=== PATIENT | male | born 1950 | race Caucasian/White ===

== ENCOUNTER → 2019-09-15 21:25 | Outpatient (CLI) | payer MEDICARE, OTHER, SELFPAY ==
[2019-08-30 10:44] VITALS: BMI 36.2
== END ==
PROVIDERS: PCP Family Medicine; Referring Provider Internal Medicine Critical Care Medicine; Visit Provider Internal Medicine Critical Care Medicine
DX: G47.33 Obstructive sleep apnea (adult) (pediatric) (principal)
CPT/HCPCS: 95811

== ENCOUNTER → 2019-09-22 10:05 | Outpatient (CLI) | payer MEDICARE, OTHER, SELFPAY ==
[2019-08-30 10:44] VITALS: BMI 36.2
--- NOTE | 2019-09-23 09:45 | PFT ---
INTRODUCTION: The patient is a 69-year-old male that presents for pulmonary function studies secondary to a diagnosis of dyspnea on exertion. Respiratory therapy reports good patient effort. Bronchodilators were used during testing. INTERPRETATION: Forced expiration spirometry demonstrates no evidence of a large airways obstructive ventilatory defect. There was no significant response to aerosolized bronchodilators. Spirograms are of good quality and plateau normally. Body plethysmography was performed and reveals a decreased TLC to 5.69 L, indicative of a mild restrictive ventilatory impairment. The remainder of the lung volumes are symmetrically reduced. Diffusing capacity by single breath CO is reduced at 63% of predicted. IMPRESSION: Mild restrictive ventilatory impairment with symmetric reduction in diffusing capacity.
== END ==
PROVIDERS: PCP Family Medicine; Referring Provider Internal Medicine Critical Care Medicine; Visit Provider Internal Medicine Critical Care Medicine
DX: R06.09 Other forms of dyspnea (principal)
CPT/HCPCS: 94060; 94726; 94729

== ENCOUNTER → 2020-02-28 13:00 | Outpatient (CLI) | payer OTHER, MEDICARE, SELFPAY ==
[2020-02-23 05:41] VITALS: BMI 37.0
== END ==
PROVIDERS: PCP Family Medicine; Referring Provider Internal Medicine Critical Care Medicine; Visit Provider Internal Medicine Critical Care Medicine
DX: Z46.89 Encounter for fitting and adjustment of other specified devices (principal)
CPT/HCPCS: 98960; G0463

== ENCOUNTER 2020-10-03 11:34 | Outpatient (RCR) | payer MEDICARE, OTHER, SELFPAY ==
[2020-08-28 08:25] VITALS: BMI 38.2
== END 2020-10-03 23:59 ==
LOC: IMMUN 11:34
PROVIDERS: PCP Family Medicine; Referring Provider Family Medicine; Visit Provider Family Medicine
DX: Z23 Encounter for immunization (principal)
CPT/HCPCS: 0011A; 0012A; 91301

== ENCOUNTER 2021-06-27 19:20 | Inpatient (IN) | payer MEDICARE, OTHER, SELFPAY ==
[2021-06-27 19:50] VITALS: BP 165/73; PULSE 89; RESP 17; TEMP 36.7; O2SAT 90
[2021-06-27 20:01] VITALS: BMI 36.1
[2021-06-27 21:09] VITALS: BP 145/63; PULSE 80; RESP 18; TEMP 36.8; O2SAT 93
[2021-06-27 21:11] VITALS: PULSE 65; O2SAT 93
--- NOTE | 2021-06-27 21:40 | NURSING ---
accucheck 49. orange juice and snack given. Stat back up sugar ordered
[2021-06-27 21:50] LABS: Bedside Glucose 49 mg/dL (70-110)
[2021-06-27] MEDS: Aspirin E.C. 81 MG Tablet PO (21:50)
[2021-06-27 22:44] LABS: Glucose 78 mg/dL (74-106)
[2021-06-28 00:46] LABS: Bedside Glucose 82 mg/dL (70-110)
[2021-06-28] MEDS: Acetaminophen 500 MG Tablet 1000 MG PO ×2 (04:24→13:54)
[2021-06-28] MEDS: oxyCODONE 5 MG Tablet PO ×3 (04:24→18:55)
[2021-06-28 05:49] LABS: Absolute Lymphocyte Count 2.18 X10^3/uL (0.83-4.51); Absolute Neutrophil Count 7.8 X10^3/uL (2.0-7.7); Basophil# 0.03 X10^3/uL; Basophil% 0.3 % (0-1); Eosinophils% 0.9 % (0-5); Hematocrit 31.4 % (40-54); Hemoglobin 10.4 g/dL (13.0-16.5); Lymphocyte # 2.18 X10^3/ul (0.83-4.51); Lymphocyte % 18.8 % (19-41); Mean Corp Hgb Conc 33.1 g/dL (32-36); Mean Corpuscular Hgb 30.4 pg (27.0-32.0); Mean Corpuscular Volume 91.8 fL (80-94); Mean Platelet Vol. 10.1 fl (6.2-12.0); Monocyte# 1.46 X10^3/uL; Monocyte% 12.6 % (0-10); NRBC Flagged by Analyzer 0 % (0-5); Neutrophil # 7.78 X10^3/uL (2.7-7.7); Neutrophil % 67.1 % (47-70); Platelet Count 267 K/mm3 (150-450); RBC Distribution Width CV 14.4 % (11.6-14.6); RBC Distribution Width SD 48.1 fl (35.1-43.9); Red Blood Count 3.42 M/mm3 (4.6-6.2); White Blood Count 11.6 K/mm3 (4.4-11.0)
[2021-06-28 06:19] LABS: ALB/GLOB Ratio 0.8 RATIO (0.9-2.4); AST(SGOT) 44 U/L (15-37); Alanine Aminotransfer ALT/SGPT 35 U/L (16-61); Albumin, Serum 2.9 g/dL (3.2-5.0); Alkaline Phosphatase 103 U/L (45-117); Anion Gap 8 (5-15); BUN 20 mg/dL (7-18); BUN/Creat Ratio 23.4 RATIO (10-20); Calcium,Total 8.7 mg/dL (8.5-10.1); Chloride 105 mmol/L (98-107); Creatinine, Serum 0.86 mg/dL (0.70-1.30); EST Glomerular Filtration Rate 93 mL/min (>60); Est Glom Filt Rate - Afr Amer 113 mL/min (>60); Estimated Creatinine Clearance 86.47 ml/min; Globulin 3.8 g/dL (2.2-4.2); Glucose 83 mg/dL (74-106); Phosphorus 3.4 mg/dL (2.5-4.9); Potassium 3.7 mmol/L (3.5-5.1); Protein, Total 6.7 g/dL (6.4-8.2); Sodium Level 138 mmol/L (136-145)
[2021-06-28 06:45] LABS: Bedside Glucose 91 mg/dL (70-110)
[2021-06-28] MEDS: metFORMIN HCl 1,000 MG Tablet 1000 MG PO (08:00)
[2021-06-28] MEDS: Lisinopril 10 MG Tablet PO (08:00)
[2021-06-28] MEDS: Pantoprazole Sodium 20 MG Tablet PO (08:00)
[2021-06-28] MEDS: CANAGLIFLOZIN 300 MG TABLET PO (08:00)
[2021-06-28] MEDS: Timolol 0.5% 5ML OPTH.BTL 1 DRP EACH EYE ×2 (08:00→21:32)
[2021-06-28] MEDS: Aspirin E.C. 81 MG Tablet PO ×2 (08:00→21:31)
[2021-06-28 10:00] VITALS: BP 162/68; PULSE 78; RESP 16; TEMP 37.1; O2SAT 95
--- NOTE | 2021-06-28 11:06 | PCM.HP.STD ---
[facility] - General General Date of Admission: 06/27/21 Date of Service: 06/28/21 Chief Complaint: debility due to recent R ankle surgery. He is NWB on the RLE. HPI Narrative CORINA ELLIS, is a 70 YO M with a PMH of DM II (poorly controlled for many years), diabetic neuropathy in both feet and neuropathy in the fingertips of both hands, Obesity, GERD, NIKI on BIPAP at with 100% compliance at his last visit with Dr. Celis, HTN, presbycusis, HLD, tobacco dependence in remission, Psoriasis, OA and glaucoma who had an open anterior ankle fusion on the R ankle by Dr. Wilks approximately in June of 2020. In January of 2021 he noticed his ankle was rolling over on the lateral side. When he saw Dr. 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 This became infected and he was treated with antibiotics with resolution of infection prior to the recent revision of the R ankle fusion and placement of a hindfoot fusion nail on 06/25/21. He was told by Dr. Wilks prior to the recent surgery that if this fails he is likely looking at amputation. Post-operatively he was seen by PT/OT and acute rehab was recommended. He was transferred to the acute inpt rehab unit at [facility] on 06/27/21 for 3 hours of therapy daily to train him to maneuver a knee walker safely. He will be NWB on the RLE for at least 6 weeks. He walks without an AD. Had a abnormal stress about 10 years ago but, the cardiac cath at [place] reportedly had no CAD. Does not often check his BS at home unless he has hypoglycemic episode. This is usually at night. Does not follow a diet. Not really open to following a diet. He likes to eat. Got diabetic shoes fitted in April prior to the recent surgery on the R ankle Has never seen a manager environmental affairs. Cuts his own toenails. Does not often follow up with his PCP. Sees an it help desk technician, Dr. Barlow, for management of the diabetes. Is due for an appt......it has been delayed by the surgery. Does not know his cholesterol but, he tells me his last HGBA1C was 7.3. Frequently gets hypoglycemic in the hospital because of the change in diet. He has lost 16 lbs since August of 2020. Has never had vascular studies on his legs. He had a infected diabetic ulcer on the lateral side of the R foot that was treated prior to the recent surgery. He was smoking 2 1/2 to 3 PPD of cigarettes daily until 2004. He started at the age of 17 when he went into the . He had PFT's in September of 2019 and findings revealed mild restrictive ventilatory defect. DLCO was decreased at 63% of predicted. All lab from this morning was reviewed. The white blood cell count is elevated at 11.6 with an unremarkable differential. Hemoglobin is 10.4 with an MCV of 91.8. Platelets are within normal limits. BMP is remarkable for an elevated BUN at 20 with a creatinine of 0.86. Hemoglobin A1c is 6 and the fasting glucose this morning was 83. Magnesium and phosphorus are within normal limits. BS last night was low at 42. diagnosed with DM 1996. [facility] Medical History (Updated 06/28/21 @ 12:[address] Ana Bose, ) Acid reflux Cardiac arrhythmia Enlarged prostate History of diabetic ulcer of foot HTN (hypertension) Hyperlipidemia Nonunion after arthrodesis Psoriasis PVD (peripheral vascular disease) Right medial tibial plateau fracture Tobacco dependence in remission Type 2 diabetes mellitus Home Medications atorvastatin 40 mg tablet 40 mg PO DAILY 08/29/19 [History Last Taken 06/27/21] canagliflozin 300 mg tablet 300 mg PO DAILY 08/29/19 [History Last Taken 06/27/21] dulaglutide 1.5 mg/0.5 mL subcutaneous pen injector 1.5 mg SC QWEEK 08/29/19 [History Last Taken 06/23/21] insulin human U-100 NPH-regulr 70-30 mix 100 unit/mL subcutaneous susp 120 unit SC BID 08/29/19 [History Last Taken 06/27/21] lisinopril 10 mg tablet 10 mg PO DAILY 08/29/19 [History Last Taken 06/27/21] metformin 1,000 mg tablet 1,000 mg PO DAILY 08/29/19 [History Last Taken 06/27/21] omeprazole 20 mg capsule,delayed release 20 mg PO DAILY 08/29/19 [History Last Taken 06/27/21] Avano 6 ml Q1H 06/27/21 [History Last Taken 06/27/21] acetaminophen 500 mg PO Q6H PRN 06/27/21 [History Last Taken Unknown] aspirin [Aspir-Low] 81 mg PO DAILY MDD heart 06/27/21 [History Last Taken Unknown] latanoprost 1 drp EACH EYE QPM 06/27/21 [History Last Taken 06/26/21] timolol 1 drp EACH EYE DAILY 06/27/21 [History Last Taken 06/27/21] Allergy/AdvReac Type Severity Reaction Status Date / Time codeine Allergy Unknown Unknown Verified 06/27/21 20:04 Penicillins Allergy Unknown Unknown Verified 06/27/21 20:04 Family History Mother Heart disease Hypertension Father Hypertension Prostate cancer Surgical History (Updated 06/28/21 @ 12:[address] Ana Bose DO) H/O umbilical hernia repair History of hand surgery History of knee surgery History of repair of rotator cuff History of tonsillectomy and adenoidectomy Hx of appendectomy S/P tendon repair Status post left foot surgery Status post open reduction with internal fixation of fracture Vasectomy status Social History (Updated 06/28/21 @ 14:[address] Ana Bose DO) household members: spouse pets and animals: Yes current gender identity: male Smoking Status: Former smoker Tobacco: How many years used: 38 how long ago did patient quit smoking: He stopped smoking in 2004 and started at 17. Smoked up to 3 PPD. alcohol intake: never substance use type: does not use ROS Constitutional Constitutional: Reports change in weight, weight loss and other Details: Wears CPAP every night. He has lost 16 lbs since August of 2020. ; Denies anorexia or chills Eyes Eyes: Reports other Details: He has BL early cataracts. Has never had laser surgery on his eyes for diabetic retinopathy. He is on medication for glaucoma ENT HEENT: Reports disequillibrium and hearing loss; Denies sore throat or vertigo Cardiovascular Cardiovascular: Reports edema; Denies chest pain, dyspnea on exertion, lightheadedness, orthopnea, palpitations, paroxysmal nocturnal dyspnea or syncope Respiratory/Chest Respiratory/Chest: Denies cough, dyspnea, shortness of breath at rest, shortness of breath with exertion or wheezing Gastrointestinal Gastrointestinal: Denies abdominal pain, constipation, diarrhea, dyspepsia, hematemesis, hematochezia, nausea or vomiting Genitourinary Genitourinary: Denies dysuria, hematuria, nocturia, urinary frequency, urinary hesitancy, urinary incontinence or urinary urgency Musculoskeletal Musculoskeletal: Reports other Details: He complains of restless legs at night when he is trying to sleep. ; Denies back pain, joint pain, joint swelling, muscle cramps, neck pain or tremors Integumentary Integumentary: Reports nail changes and other Details: He has psoriasis and uses a shampoo to keep the rash under control. ; Denies jaundice Neurologic Neurologic: Reports paresthesias RUE, RLE, LUE and LLE; Denies confusion, disequilibrium, dizziness, focal weakness, headache(s), seizures or tremor(s) Psychiatric Psychiatric: Denies anxiety, cognitive impairment, depression, difficulty concentrating, homicidal ideation, mood swings, panic attacks or suicidal ideation Endocrine Endocrinology: Denies change in body appearance, polydipsia or polyuria Hematologic/Lymphatic Hematologic/Lymphatic: Denies easy bleeding, easy bruising or lymphadenopathy Allergic/Immunologic Allergic/Immunologic: Reports other Details: psoriasis ; Denies rhinitis, eczemia or asthma Vital Signs Vital Signs Vital Signs: 06/27/21 19:50 06/27/21 20:55 06/27/21 21:09 Temperature 98.1 F 98.3 F Temperature Source Temporal Temporal Pulse Rate 89 80 Pulse Strength Normal (2+) Respiratory Rate 17 18 Respiratory Effort Respiratory Depth Respiratory Pattern Blood Pressure 165/73 H 145/63 H Blood Pressure Mean 103 90 Blood Pressure Source Monitor Monitor Blood Pressure Position Semi-Fowlers Semi-Fowlers Blood Pressure Location Right Arm Right Arm Pulse Ox 90 93 Oxygen Delivery Method Room Air Room Air 06/27/21 21:11 06/28/21 10:00 Temperature 98.8 F Temperature Source Oral Pulse Rate 65 78 Pulse Strength Respiratory Rate 16 Respiratory Effort Normal Non-Labored Respiratory Depth Normal Respiratory Pattern Normal Blood Pressure 162/68 H Blood Pressure Mean 99 Blood Pressure Source Monitor Blood Pressure Position Semi-Fowlers Blood Pressure Location Left Arm Pulse Ox 93 95 Oxygen Delivery Method Room Air Room Air Weight Weight: 266 lb 1.567 oz Body Mass Index (BMI) 36.1 Physical Exam Const alert, oriented x3, no apparent distress and well nourished Constitutional Narrative: Sitting in the recliner at the bedside. Denies pain and appears comfortable. General Appearance: cooperative and well kempt HEENT normocephalic HEENT Narrative: MM are dry. No facial asymmetry. Head and Scalp: atraumatic; Negative for temporal artery tenderness Nose: external nose normal External Ear: other Throat: other Other Details: mild hearing loss. He is able to understand me if I remove my mask and only occasionally asks me to repeat something. He has hearing aids but, when he puts them in within 2 days his EAC's start to bleed....he has discussed this with his customer sales distributor and she did not offer any treatment. He associates the bleeding with psoriasis Eyes EOMs intact bilaterally, conjunctivae normal and no scleral icterus Neck no lymphadenopathy and supple Neck Narrative: Thick neck. No carotid bruits. Carotids have brisk upstroke and goo pulse volume. Chest Chest: symmetrical chest wall rise Resp normal respiratory effort and clear to auscultation bilaterally Resp Narrative: diminished BS's - suspect due to body habitus +/- restrictive ventilatory defect. Effort and Inspection: able to speak in complete sentences Cardio regular rate, regular rhythm, S1 normal heart sound, S2 normal heart sound, no murmurs, no rub and no gallops GI GI Narrative: Obese. NT, ND, no guarding with palpation. No masses appreciated and no abd bruits. external exam normal Narrative: He has been circumcised. Extremity Extremity Narrative: Trace pitting ankle edema on the left medially. Maldonado enlargement of the L ankle laterally. R ankle is dressed and has an LYSSA wrap around the ankle. DP and PT in the L ankle are 3/3. I could not palpate the DP and PT on the R due to the dressing but the R popliteal is 3/3. He has been told the pulses in the R foot are decreased. Tinea unguium of the nails of the feet. The feet are warm BL. Skin General Skin Exam: no breakdown Rashes: no rashes Wound Narrative: the incision is covered by the dressing and will examine at the next dressing change Neuro oriented x3, CN's II-XII intact bilaterally, moves all extremities and no focal motor deficits Neuro Narrative: severe neuropathy in both feet and also has neuropathy in the tips of the fingers BL......thumb is spared BL. Psych mental status grossly normal, thought process normal, cooperative, affect normal and speech normal Appearance: grossly normal and appropriate Activity / Motor Behavior: appropriate eye contact Mood & Affect: euthymic mood Results Lab / Micro Data Result Diagrams: 06/28/21 05:28 06/28/21 05:28 Labs: Laboratory Results - last 24 hr 06/27/21 21:40: POC Glucose 49 L 06/27/21 22:14: Glucose 78 06/28/21 00:40: POC Glucose 82 06/28/21 05:28: WBC 11.6 H, RBC 3.42 L, Hgb 10.4 L, Hct 31.4 L, MCV 91.8, MCH 30.4, MCHC 33.1, RDW Std Deviation 48.1 H, RDW Coeff of Luis Alberto 14.4, Plt Count 267, MPV 10.1, Immature Gran % (Auto) 0.300, Neut % (Auto) 67.1, Lymph % (Auto) 18.8 L, [place] % (Auto) 12.6 H, Eos % (Auto) 0.9, Baso % (Auto) 0.3, Absolute Neuts (auto) 7.8 H, Absolute Lymphs (auto) 2.18, Nucleated RBC % 0 06/28/21 05:28: Sodium 138, Potassium 3.7, Chloride 105, Carbon Dioxide 25.0, Anion Gap 8, BUN 20 H, Creatinine 0.86, Estim Creat Clear Calc 86.47, Est GFR (MDRD) Af Amer 113, Est GFR (MDRD) Non-Af 93, BUN/Creatinine Ratio 23.4 H, Glucose 83, Calcium 8.7, Phosphorus 3.4, Magnesium 2.0, Total Bilirubin 0.40, AST 44 H, ALT 35, Alkaline Phosphatase 103, Total Protein 6.7, Albumin 2.9 L, Globulin 3.8, Albumin/Globulin Ratio 0.8 L 06/28/21 05:28: Hemoglobin A1c 6.0 H 06/28/21 06:38: POC Glucose 91 Assessment & Plan Assessment/Plan (1) Chronic cough: (2) NIKI (obstructive sleep apnea): (3) Dyspnea on exertion: (4) Obesity due to excess calories with serious comorbidity: QUALIFIERS: Body mass index: BMI 36.0-36.9 Obesity classification: adult class 2 (BMI 35 - 39.9) Qualified Code(s): E66.01 - Morbid (severe) obesity due to excess calories; Z68.36 - Body mass index (BMI) 36.0-36.9, adult (5) Status post open reduction with internal fixation of fracture: (6) PVD (peripheral vascular disease): (7) Enlarged prostate: (8) Cardiac arrhythmia: (9) Acid reflux: (10) Hyperlipidemia: (11) HTN (hypertension): (12) Type 2 diabetes mellitus: (13) Normochromic normocytic anemia: (14) Physical debility: (15) Glaucoma: (16) Status post open reduction and internal fixation (ORIF) of fracture: PLAN: PLAN PT for gait stability OT for ADL's Analgesics as needed Bowel protocol Fall precautions Assess for Anxiety/Depression GI prophylaxis with Protonix 20 mg p.o. daily DVT prophylaxis with enoxaparin 30 mg subcu every 12 hours and TAMEKA kuhn Follow up with Dr. Lo, Dr. Barlow? and Dr. Wilks following DC from IP Rehab AM lab including CMP, CBC, Mag and Phos - reviewed I advised him to follow up with a manager environmental affairs to cut his toenails in the future. He is never to go barefoot or walk in his stocking feet. I think it would be gonzáles at some point to get vascular studies on this 70 YO man with DM II, HTN, HLD, extensive smoking hx, diabetic neuropathy in hands and feet and a + FH of heart disease to evaluate for ischemia as the etiology of the non-union. May want to also consider a bone stimulator. Will check a Vitamin D. He needs to have pharmacologic DVT prophylaxis and did not come to us with any orders. Will start Lovenox 30 mg SQ Q 12H and try to reach Dr. Wilks about his preferences for DVT prophylaxis. Strict NWB on the RLE. Education regarding a proper diet. International Marketing Manager consulted. Check a lipid panel, iron studies, protein/creat ratio in the urine. Charges/Coding Visit Charges Inpatient E&M: 89814 Init Hosp L3
[2021-06-28 11:17] VITALS: O2SAT 97
[2021-06-28 12:00] LABS: Bedside Glucose 156 mg/dL (70-110)
[2021-06-28 12:24] LABS: Cholesterol 122 mg/dL (200); Ferritin 77 ng/mL (26-388); High Density Lipoprotein 30 mg/dL; Iron 26 ug/dL (65-175); Iron Binding Capacity,Total 307 ug/dL (250-450); PERCENT IRON SATURATION 8.5 % (15.0-55.0); Triglycerides 143 mg/dL; Very Low Density Lipoprotein 29 mg/dL (5-40)
[2021-06-28 13:08] VITALS: O2SAT 97
[2021-06-28 14:16] LABS: Protein, Urine (Random) 15.4 mg/dL (<11.9); Protein:Creat Ratio 336 mg/g CRE (0-200)
--- NOTE | 2021-06-28 14:30 | PCM.RU.PYE ---
Admission Information Primary Diagnosis:: Debility due to recent R ankle fusion due to non-union of the previous anterior R ankle fusion. NWB on the RLE for at least 6 weeks and possibly longer. Status Changes from Prescreening?: No changes Identified Actual Problem List:: Skin Intergrity, Pain, ALteration in Cmfrt, Mobility Impaired, Self Care Deficit, Know.Dfct/Disease Process, Diabetes, Hypoglycemia, BP, Hypertension, Fluid Change-Dehydration and Alteration-Leisure Activ. Potential Problem List:: DVT, Bleeding, Infection, UTI, Aspiration, Falls, Skin Integrity and Depression Risk of Complications DVT: LMWH and TAMEKA Hose Bleeding: Monitor Lab Values, Nursing to Teach Precautions for anti-coagulation therapy., Wound, if applicable, to be assessed every shift. and Stroke patients assessed for lethargy or change in status. Infection: Clinical Staff to Monitor for S/S of infection: and S/S of infection include fever, redness, warmth, etc. Urinary Tract Infection: Monitor for frequency, burning, discomfort, or incontinence. and Nursing will obtain urine sample for urinalysis and C&S when ordered. Aspiration: Clinical staff will monitor for coughing, drooling, congestion., Speech will evaluate swallowing and dsyphasia. and Nursing will monitor patient swallowing during meals. Falls: Patient will be evaluated for Fall Precautions and Patient will be placed on Fall Precautions as indicated per protocol. Skin Breakdown: Nursing will assess skin daily using assessment tool. and Nursing will place on Skin Breakdown Precautions as indicated. Pain: Clinical staff will assess patient's pain level per protocol., Medications will be given, if needed, and the pain level reassessed. and Other methods: Massage, distraction, decrease stimulus, etc. used PRN. Plan of Care Patient requires physician specializing in physical medicine and rehab oversight to provide close medical supervision of rehab issues including: Pain Management, Sleep Problems, Bowel and Bladder, Medical and co-morbidity Management, DVT prophylaxis, Rehabilitation Leadership and Coordination of treatment team Patient needs Physical Therapy: For a minimum of 1 hour and At least 5 out of 7 days Patient needs Physical Therapy to improve:: Mobility, Strengthening, Transfers, Stretching, ROM, Endurance, Stairs, Gait and Balance Patient needs Occupational Therapy: For a minimum of 1 hour and At least 5 out of 7 days Patient needs Occupational Therapy to improve ADL's incl.: Eating, Grooming, Bathing, Dressing, Toileting, Toilet transfers, Community Reintegration, Higher functioning activities, Household tasks, Adaptive Equipment, Splinting and Other activities as determined Patient requires 24/7 Rehabilitation Nursing for: Pain Issues, Identifying and preventing risk factors, Monitoring and reporting current medical conditions, Assisting with ambulation, transfer, and all ADL's, Teaching patients about disease process and medications, Family teaching, Providing safe environment, Bowel and Bladder Issues, Skin integrity and Medication Management Patient needs Semiconductor Equipment Technician/ Case Management for: Discharge Planning, Arranging Home Equipment or Services and Family Interventions Patient needs Dietary and Nutrition Services for: Adequate Nutrition, Nutritional Supplements and Nutritional Education Goals Patient will remain: free from falls and or injury at time of discharge. Patient will perform bed mobility at: MOD I level of assist. Patient will complete transfers from bed to chair at: MOD I level of assist. Patient will ambulate: with LRD and - (Step/hop on the Left leg with WW for 10 ft) Patient will propel wheelchair: - (165 feet at mod I) Patient will complete upper body dressing at: MOD I level of assist. Patient will complete lower body dressing at: MOD I level of assist. Patient will complete toileting at: - (He will demonstrate stand and pivot on and off an elevated commode and toileting tasks at mod I) Patient will perform bathing at: - (He will demonstrate transfer on and off tub/shower bench services with the use of mounted grab bars at a standby assist level) Patient will complete grooming at: MOD I level of assist. Patient will complete home management skills at: MOD I level of assist. Patient will achieve: - (No stairs until he is allowed to bear weight on the right lower extremity) Patient will have pain level of: of 3 or less Patient's skin will: remain intact Patient will receive: adequate nutrition. Discharge Planning Pt Prognosis for Sig. Practical Improv. w/in Reasonable Time: Good Estimated Length of stay (days): 21 Anticipated D/C Destination: Home w/ family or friends Was Preadmission Assessment Accurate?: Yes
[2021-06-28] MEDS: 0.9% Saline Lock 10 ML Syringe IV (16:12)
[2021-06-28] MEDS: Sodium Ferric Gluconat 125 MG in 0.9% Normal Saline 100 ML 110 MG IV (16:18)
[2021-06-28] MEDS: Insulin Human 75/25 Kwickpen 70 UNIT SC (16:47)
[2021-06-28 16:56] LABS: Bedside Glucose 175 mg/dL (70-110)
[2021-06-28] MEDS: Insulin Lispro 100 UNIT/ML INSULN.PEN SC (17:27)
[2021-06-28 19:30] VITALS: PULSE 87; RESP 18
[2021-06-28] MEDS: Enoxaparin 30 MG/0.3 ML Syringe SC (21:31)
[2021-06-28] MEDS: Atorvastatin Calcium 40 MG Tablet PO (21:31)
[2021-06-28 21:45] LABS: Bedside Glucose 207 mg/dL (70-110)
[2021-06-28 22:00] VITALS: BP 129/62; PULSE 87; RESP 18; TEMP 37; O2SAT 97
[2021-06-28] MEDS: Senna/Docusate Sodium 1 Tablet 2 TABLET PO (22:42)
[2021-06-29] MEDS: oxyCODONE 5 MG Tablet PO ×3 (05:36→21:42)
[2021-06-29 07:11] LABS: Bedside Glucose 150 mg/dL (70-110)
[2021-06-29 08:15] VITALS: O2SAT 95
[2021-06-29 08:32] VITALS: BP 149/71; PULSE 80; RESP 16; TEMP 36.9; O2SAT 95
[2021-06-29] MEDS: metFORMIN HCl 1,000 MG Tablet 1000 MG PO (08:41)
[2021-06-29] MEDS: CANAGLIFLOZIN 300 MG TABLET PO (08:41)
[2021-06-29] MEDS: Aspirin E.C. 81 MG Tablet PO ×2 (08:41→21:33)
[2021-06-29] MEDS: Senna/Docusate Sodium 1 Tablet 2 TABLET PO ×2 (08:41→21:40)
[2021-06-29] MEDS: Pantoprazole Sodium 20 MG Tablet PO (08:41)
[2021-06-29] MEDS: Lisinopril 10 MG Tablet PO (08:41)
[2021-06-29] MEDS: Latanoprost 0.005% 1 Bottle 1 DRP EACH EYE (08:42)
[2021-06-29] MEDS: Enoxaparin 30 MG/0.3 ML Syringe SC ×2 (08:42→21:33)
[2021-06-29] MEDS: Insulin Lispro 100 UNIT/ML INSULN.PEN SC ×3 (08:42→16:46)
[2021-06-29] MEDS: Timolol 0.5% 5ML OPTH.BTL 1 DRP EACH EYE ×2 (08:42→21:33)
[2021-06-29] MEDS: Insulin Human 75/25 Kwickpen 90 UNIT SC (08:43)
[2021-06-29 11:15] LABS: Bedside Glucose 182 mg/dL (70-110)
[2021-06-29] MEDS: Insulin Human 75/25 Kwickpen 70 UNIT SC (16:45)
[2021-06-29 17:06] LABS: Bedside Glucose 166 mg/dL (70-110)
[2021-06-29 19:23] VITALS: BP 136/59; PULSE 76; RESP 18; TEMP 36.7; O2SAT 95
[2021-06-29 21:31] LABS: Bedside Glucose 126 mg/dL (70-110)
[2021-06-29] MEDS: Atorvastatin Calcium 40 MG Tablet PO (21:33)
[2021-06-29 21:46] VITALS: RESP 16
[2021-06-30 06:36] LABS: Bedside Glucose 140 mg/dL (70-110)
[2021-06-30 07:30] VITALS: O2SAT 95
[2021-06-30 08:08] VITALS: BP 151/67; PULSE 84; RESP 16; TEMP 36.6; O2SAT 92
[2021-06-30] MEDS: Aspirin E.C. 81 MG Tablet PO ×2 (08:26→20:58)
[2021-06-30] MEDS: metFORMIN HCl 1,000 MG Tablet 1000 MG PO (08:28)
[2021-06-30] MEDS: Enoxaparin 30 MG/0.3 ML Syringe SC ×2 (08:29→20:58)
[2021-06-30] MEDS: Pantoprazole Sodium 20 MG Tablet PO (08:29)
[2021-06-30] MEDS: CANAGLIFLOZIN 300 MG TABLET PO (08:29)
[2021-06-30] MEDS: Latanoprost 0.005% 1 Bottle 1 DRP EACH EYE (08:29)
[2021-06-30] MEDS: Senna/Docusate Sodium 1 Tablet 2 TABLET PO ×2 (08:29→20:58)
[2021-06-30] MEDS: Lisinopril 10 MG Tablet PO (08:30)
[2021-06-30] MEDS: Timolol 0.5% 5ML OPTH.BTL 1 DRP EACH EYE ×2 (08:30→20:57)
[2021-06-30] MEDS: oxyCODONE 5 MG Tablet PO ×2 (08:31→21:15)
[2021-06-30] MEDS: Insulin Human 75/25 Kwickpen 90 UNIT SC (09:53)
[2021-06-30 11:15] LABS: Bedside Glucose 186 mg/dL (70-110)
[2021-06-30] MEDS: Insulin Lispro 100 UNIT/ML INSULN.PEN SC (11:58)
[2021-06-30 16:30] LABS: Bedside Glucose 104 mg/dL (70-110)
[2021-06-30] MEDS: Insulin Human 75/25 Kwickpen 64 UNIT SC (18:04)
[2021-06-30] MEDS: Atorvastatin Calcium 40 MG Tablet PO (20:58)
[2021-06-30] MEDS: Acetaminophen 500 MG Tablet 1000 MG PO (21:14)
[2021-06-30 21:20] VITALS: BP 134/69; PULSE 85; RESP 16; TEMP 37.1; O2SAT 95
[2021-06-30 21:21] LABS: Bedside Glucose 165 mg/dL (70-110)
[2021-06-30 22:00] VITALS: RESP 16
[2021-07-01] MEDS: oxyCODONE 5 MG Tablet PO ×3 (06:14→20:14)
[2021-07-01] MEDS: Acetaminophen 500 MG Tablet 1000 MG PO ×2 (06:14→15:04)
[2021-07-01 06:35] LABS: Bedside Glucose 144 mg/dL (70-110)
[2021-07-01 07:40] VITALS: BP 151/79; PULSE 71; RESP 14; TEMP 36.6; O2SAT 99
[2021-07-01 08:05] VITALS: O2SAT 99
[2021-07-01] MEDS: metFORMIN HCl 1,000 MG Tablet 1000 MG PO (08:11)
[2021-07-01] MEDS: Lisinopril 10 MG Tablet PO (08:12)
[2021-07-01] MEDS: Pantoprazole Sodium 20 MG Tablet PO (08:12)
[2021-07-01] MEDS: Timolol 0.5% 5ML OPTH.BTL 1 DRP EACH EYE ×2 (08:12→20:14)
[2021-07-01] MEDS: Senna/Docusate Sodium 1 Tablet 2 TABLET PO ×2 (08:12→20:14)
[2021-07-01] MEDS: Aspirin E.C. 81 MG Tablet PO ×2 (08:13→20:15)
[2021-07-01] MEDS: CANAGLIFLOZIN 300 MG TABLET PO (08:13)
[2021-07-01] MEDS: Enoxaparin 30 MG/0.3 ML Syringe SC (08:13)
[2021-07-01] MEDS: Latanoprost 0.005% 1 Bottle 1 DRP EACH EYE (08:14)
[2021-07-01] MEDS: Insulin Human 75/25 Kwickpen 90 UNIT SC (08:15)
[2021-07-01 09:03] LABS: Vitamin D,25 Hydroxy 15.5 ng/mL
--- NOTE | 2021-07-01 10:22 | PCM.PN.BLA ---
Progress Note Afebrile VSS-systolic blood pressure in the a.m. tends to be mildly elevated and for the past 2 days has been 149-151. Maintaining appropriate oxygen saturation on RA Oral intake is good The blood sugar record was reviewed. All blood sugars for the past 2 days have been less than 200 with no hypoglycemia now. Fasting blood sugar this morning was 144. Discussed with nursing - no problems that need addressed Reviewed the PT/OT notes Medication list reviewed. Vitamin D level is very low at 15.5. Calcium corrected for hypoalbuminemia is within normal limits. Juan Jose denies chest pain, shortness of breath, cough, dysuria, abdominal pain, nausea/vomiting, lightheadedness. Pain is adequately controlled with oxycodone 5 mg p.o. every 4 hours as needed pain and he is taking 3-4 oxycodone a day. Physical Exam Const alert and oriented x3 HEENT moist oral mucous membranes Resp normal respiratory effort and clear to auscultation bilaterally Effort and Inspection: able to speak in complete sentences Cardio regular rate, regular rhythm and no gallops GI normal to inspection, nondistended, normoactive bowel sounds, soft to palpation and non-tender GI Narrative: obese Extremity no calf tenderness Skin General Skin Exam: no breakdown Rashes: no rashes Wound Narrative: The same dressing is in place and we are not to change the dressing. He has an appt to see Dr. Wilks on 07/10/21 Assessment & Plan Assessment/Plan (1) Status post open reduction and internal fixation (ORIF) of fracture: PLAN: Continue therapy. is gathering DME he will need at ID. (2) Physical debility: PLAN: Will be non-wt bearing for at least 6 weeks and I suspect longer. If it is not healing would consider a bone stimulator and vascular studies since he has multiple RF's for PAD including DM (uncontrolled ofr a long time), HTN, HL, obesity, peripheral neuropathy, Vitamin D deficiency. (3) Normochromic normocytic anemia: PLAN: stable (4) PVD (peripheral vascular disease): PLAN: Recommend getting OP arterial dopplers (5) Type 2 diabetes mellitus: PLAN: well controlled. Off Trulicity and on less insulin in the hospital because he is on a 2,000 calorie, carb consistent diet. He has no intention of following a diet when discharged because he likes to eat and snack. He prefers to take more medication so he can eat what he wants. Visit Charges Inpatient E&M: 63775 Subs Hosp L2
[2021-07-01 11:05] LABS: Bedside Glucose 158 mg/dL (70-110)
[2021-07-01] MEDS: Insulin Lispro 100 UNIT/ML INSULN.PEN SC (11:58)
[2021-07-01] MEDS: Cholecalciferol (VIT D3) 25 MCG TABLET (1,000 UNITS) 50 MCG PO (11:59)
--- NOTE | 2021-07-01 13:44 | CASEMGMT ---
Social Work IDT met with patient and for Team meeting. Discussed patient's progress in therapy and nursing. Pt is NWBS to RLE. Explained Medicare approved with 15 days with [facility] 07/12. Pt has f/u appt for 07/10 and requesting to DC prior to that appt on 07/10. IDT agreeable. SW to assist with HHC and DME orders at DC. Will ReTeam next week. SW to continue to follow. Yaa Morrow, DRILLER'S OFFSIDER SALVAGE CUTTER
[2021-07-01 16:05] LABS: Bedside Glucose 118 mg/dL (70-110)
[2021-07-01] MEDS: Insulin Human 75/25 Kwickpen 64 UNIT SC (17:33)
[2021-07-01 19:38] VITALS: BP 127/58; PULSE 89; RESP 18; TEMP 36.6; O2SAT 96
[2021-07-01] MEDS: Atorvastatin Calcium 40 MG Tablet PO (20:15)
[2021-07-01 21:25] LABS: Bedside Glucose 155 mg/dL (70-110)
[2021-07-02] MEDS: oxyCODONE 5 MG Tablet PO ×5 (03:38→21:35)
[2021-07-02] MEDS: Acetaminophen 500 MG Tablet 1000 MG PO ×3 (03:45→21:34)
[2021-07-02 06:45] VITALS: O2SAT 93
[2021-07-02 06:45] LABS: Bedside Glucose 144 mg/dL (70-110)
[2021-07-02 07:30] VITALS: BP 149/76; PULSE 80; RESP 16; TEMP 36.9; O2SAT 94
[2021-07-02] MEDS: metFORMIN HCl 1,000 MG Tablet 1000 MG PO (08:15)
[2021-07-02] MEDS: Aspirin E.C. 81 MG Tablet PO ×2 (08:15→20:09)
[2021-07-02] MEDS: Senna/Docusate Sodium 1 Tablet 2 TABLET PO ×2 (08:15→20:09)
[2021-07-02] MEDS: Pantoprazole Sodium 20 MG Tablet PO (08:15)
[2021-07-02] MEDS: CANAGLIFLOZIN 300 MG TABLET PO (08:15)
[2021-07-02] MEDS: Lisinopril 10 MG Tablet PO (08:16)
[2021-07-02] MEDS: Cholecalciferol (VIT D3) 25 MCG TABLET (1,000 UNITS) 50 MCG PO (08:16)
[2021-07-02] MEDS: Latanoprost 0.005% 1 Bottle 1 DRP EACH EYE (08:16)
[2021-07-02] MEDS: Timolol 0.5% 5ML OPTH.BTL 1 DRP EACH EYE ×2 (08:16→20:10)
[2021-07-02] MEDS: Insulin Human 75/25 Kwickpen 90 UNIT SC (08:53)
[2021-07-02 12:05] LABS: Bedside Glucose 122 mg/dL (70-110)
[2021-07-02 17:21] LABS: Bedside Glucose 86 mg/dL (70-110)
[2021-07-02 19:22] VITALS: BP 137/61; PULSE 72; RESP 16; TEMP 36.7; O2SAT 93
[2021-07-02] MEDS: Atorvastatin Calcium 40 MG Tablet PO (20:09)
[2021-07-02 21:41] LABS: Bedside Glucose 137 mg/dL (70-110)
[2021-07-03 06:46] LABS: Bedside Glucose 171 mg/dL (70-110)
[2021-07-03] MEDS: oxyCODONE 5 MG Tablet PO ×3 (06:57→16:46)
[2021-07-03] MEDS: Acetaminophen 500 MG Tablet 1000 MG PO ×2 (06:57→16:46)
[2021-07-03 07:29] VITALS: BP 119/62; PULSE 86; RESP 18; TEMP 36.2; O2SAT 94
[2021-07-03] MEDS: Aspirin E.C. 81 MG Tablet PO ×2 (08:04→20:28)
[2021-07-03] MEDS: metFORMIN HCl 1,000 MG Tablet 1000 MG PO (08:04)
[2021-07-03] MEDS: Insulin Lispro 100 UNIT/ML INSULN.PEN SC ×3 (08:04→17:13)
[2021-07-03] MEDS: CANAGLIFLOZIN 300 MG TABLET PO (08:04)
[2021-07-03] MEDS: Insulin Human 75/25 Kwickpen 90 UNIT SC (08:04)
[2021-07-03] MEDS: Pantoprazole Sodium 20 MG Tablet PO (08:05)
[2021-07-03] MEDS: Timolol 0.5% 5ML OPTH.BTL 1 DRP EACH EYE ×2 (08:05→20:28)
[2021-07-03] MEDS: Lisinopril 10 MG Tablet PO (08:05)
[2021-07-03] MEDS: Senna/Docusate Sodium 1 Tablet 2 TABLET PO ×2 (08:05→20:28)
[2021-07-03] MEDS: Latanoprost 0.005% 1 Bottle 1 DRP EACH EYE (08:05)
[2021-07-03] MEDS: Cholecalciferol (VIT D3) 25 MCG TABLET (1,000 UNITS) 50 MCG PO (08:05)
--- NOTE | 2021-07-03 11:05 | PCM.PROGNOTE ---
Subjective Subjective Afebrile VSS Maintaining appropriate oxygen saturation on RA Oral intake is good Blood sugar record was reviewed and the blood sugars are under good control with no blood sugars greater than 200 and no hypoglycemia. We are holding the Trulicity because the blood sugars are well controlled without it and we have been decreasing the insulin. will likely need to restart post discharge because his diet will change. Discussed with nursing - no problems that need addressed Reviewed the PT/OT notes Medication list reviewed. Juan Jose has no complaints today. He is sleeping well. He denies chest pain, shortness of breath, calf pain. He has a mild dry cough which he says he has had since he quit smoking. It is nonproductive. He denies dysuria or lightheadedness. Alert, oriented x3, sitting in the recliner at the bedside, appears comfortable and in no acute distress Mucous membranes are moist Lungs-excellent air exchange and they are clear to auscultation bilaterally Heart-regular rate and rhythm, no gallop Abdomen-obese, soft, normal bowel sounds, no guarding with palpation, soft He has mild edema in the right foot and some ecchymosis of the second toe on the plantar surface. Normal affect Objective Data Objective Data Vital Signs: Vital Signs Temp Pulse Resp BP Pulse Ox 97.2 F L 86 18 119/62 94 07/03/21 07:29 07/03/21 07:29 07/03/21 07:29 07/03/21 07:29 07/03/21 07:29 Oxygen Delivery Method Room Air Weight: 265 lb 9.6 oz Body Mass Index (BMI) 36.1 Intake & Output: Intake and Output for Last 24 Hours 07/01/21 07/02/21 07/03/21 23:59 23:59 23:59 Intake Total 880 / 880 2060 / 2060 360 / 360 Output Total 600 / 600 1925 / 1925 950 / 950 Balance 280 / 280 135 / 135 -590 / -590 Lab / Micro Data Result Diagrams: 06/28/21 05:28 06/28/21 05:28 Labs: Laboratory Results - last 24 hr 07/02/21 12:01: POC Glucose 122 H 07/02/21 17:14: POC Glucose 86 07/02/21 21:32: POC Glucose 137 H 07/03/21 06:40: POC Glucose 171 H Micro: Microbiology 06/28/21 18:55 Stool Stool Occult Blood ([facility]) - Final Physical Exam Const alert, oriented x3 and no apparent distress Resp clear to auscultation bilaterally Effort and Inspection: able to speak in complete sentences Cardio regular rate, regular rhythm and no gallops Cardio Narrative: No ectopy GI normal to inspection, nondistended, normoactive bowel sounds, soft to palpation and non-tender Skin General Skin Exam: no breakdown Rashes: no rashes Assessment & Plan Assessment/Plan (1) Status post open reduction and internal fixation (ORIF) of fracture: (2) Physical debility: (3) Type 2 diabetes mellitus: (4) HTN (hypertension): PLAN: 1. Continue therapy Charges/Coding Visit Charges Inpatient E&M: 80059 Subs Hosp L2
[2021-07-03 12:10] LABS: Bedside Glucose 155 mg/dL (70-110)
[2021-07-03 16:51] LABS: Bedside Glucose 160 mg/dL (70-110)
[2021-07-03] MEDS: Insulin Human 75/25 Kwickpen 64 UNIT SC (17:14)
[2021-07-03 19:30] VITALS: BP 142/72; PULSE 82; RESP 18; TEMP 36.3; O2SAT 95
[2021-07-03] MEDS: Atorvastatin Calcium 40 MG Tablet PO (20:28)
[2021-07-03 20:40] LABS: Bedside Glucose 185 mg/dL (70-110)
[2021-07-04] MEDS: oxyCODONE 5 MG Tablet PO ×3 (05:28→23:16)
[2021-07-04] MEDS: Acetaminophen 500 MG Tablet 1000 MG PO ×3 (05:29→23:16)
[2021-07-04 06:46] LABS: Bedside Glucose 132 mg/dL (70-110)
[2021-07-04] MEDS: Timolol 0.5% 5ML OPTH.BTL 1 DRP EACH EYE ×2 (07:22→21:19)
[2021-07-04] MEDS: Latanoprost 0.005% 1 Bottle 1 DRP EACH EYE (07:23)
[2021-07-04] MEDS: Senna/Docusate Sodium 1 Tablet 2 TABLET PO ×2 (07:24→21:21)
[2021-07-04] MEDS: Aspirin E.C. 81 MG Tablet PO ×2 (07:24→21:26)
[2021-07-04] MEDS: metFORMIN HCl 1,000 MG Tablet 1000 MG PO (07:24)
[2021-07-04] MEDS: Lisinopril 10 MG Tablet PO (07:24)
[2021-07-04] MEDS: Cholecalciferol (VIT D3) 25 MCG TABLET (1,000 UNITS) 50 MCG PO (07:24)
[2021-07-04] MEDS: Pantoprazole Sodium 20 MG Tablet PO (07:24)
[2021-07-04] MEDS: CANAGLIFLOZIN 300 MG TABLET PO (07:25)
[2021-07-04] MEDS: Insulin Human 75/25 Kwickpen 90 UNIT SC (07:26)
[2021-07-04 08:00] VITALS: BP 160/80; PULSE 69; RESP 16; TEMP 36.7; O2SAT 96
[2021-07-04 12:05] LABS: Bedside Glucose 110 mg/dL (70-110)
[2021-07-04 17:15] LABS: Bedside Glucose 151 mg/dL (70-110)
[2021-07-04] MEDS: Insulin Lispro 100 UNIT/ML INSULN.PEN SC (17:23)
[2021-07-04] MEDS: Insulin Human 75/25 Kwickpen 64 UNIT SC (17:24)
[2021-07-04] MEDS: Atorvastatin Calcium 40 MG Tablet PO (21:21)
[2021-07-04 21:46] LABS: Bedside Glucose 277 mg/dL (70-110)
[2021-07-04 21:52] VITALS: BP 136/60; PULSE 67; RESP 14; TEMP 35.9; O2SAT 94
[2021-07-04 21:54] VITALS: PULSE 67; RESP 16
[2021-07-05] MEDS: Acetaminophen 500 MG Tablet 1000 MG PO ×3 (07:08→23:28)
[2021-07-05] MEDS: oxyCODONE 5 MG Tablet PO ×3 (07:08→23:28)
[2021-07-05 07:21] LABS: Bedside Glucose 202 mg/dL (70-110)
[2021-07-05] MEDS: Senna/Docusate Sodium 1 Tablet 2 TABLET PO (07:57)
[2021-07-05] MEDS: Pantoprazole Sodium 20 MG Tablet PO (07:57)
[2021-07-05] MEDS: Cholecalciferol (VIT D3) 25 MCG TABLET (1,000 UNITS) 50 MCG PO (07:57)
[2021-07-05] MEDS: Lisinopril 10 MG Tablet PO (07:57)
[2021-07-05] MEDS: Aspirin E.C. 81 MG Tablet PO ×2 (07:57→20:46)
[2021-07-05] MEDS: metFORMIN HCl 1,000 MG Tablet 1000 MG PO (07:57)
[2021-07-05] MEDS: Insulin Human 75/25 Kwickpen 90 UNIT SC (07:58)
[2021-07-05] MEDS: Insulin Lispro 100 UNIT/ML INSULN.PEN SC ×3 (08:00→17:20)
[2021-07-05] MEDS: CANAGLIFLOZIN 300 MG TABLET PO (08:02)
[2021-07-05] MEDS: Timolol 0.5% 5ML OPTH.BTL 1 DRP EACH EYE ×2 (08:03→20:46)
[2021-07-05] MEDS: Latanoprost 0.005% 1 Bottle 1 DRP EACH EYE (08:04)
[2021-07-05 08:30] VITALS: BP 129/63; PULSE 93; RESP 16; TEMP 36.5; O2SAT 93
[2021-07-05 11:06] LABS: Bedside Glucose 233 mg/dL (70-110)
[2021-07-05 16:16] LABS: Bedside Glucose 156 mg/dL (70-110)
[2021-07-05] MEDS: Insulin Human 75/25 Kwickpen 64 UNIT SC (17:21)
[2021-07-05 19:00] VITALS: BP 149/71; PULSE 76; RESP 18; TEMP 36.6; O2SAT 93
[2021-07-05] MEDS: Atorvastatin Calcium 40 MG Tablet PO (20:46)
[2021-07-05 21:01] LABS: Bedside Glucose 175 mg/dL (70-110)
[2021-07-06 06:55] LABS: Bedside Glucose 123 mg/dL (70-110)
[2021-07-06] MEDS: Acetaminophen 500 MG Tablet 1000 MG PO ×3 (07:34→23:33)
[2021-07-06] MEDS: oxyCODONE 5 MG Tablet PO ×3 (07:34→23:34)
[2021-07-06] MEDS: Pantoprazole Sodium 20 MG Tablet PO (07:35)
[2021-07-06] MEDS: Lisinopril 10 MG Tablet PO (07:35)
[2021-07-06] MEDS: Cholecalciferol (VIT D3) 25 MCG TABLET (1,000 UNITS) 50 MCG PO (07:35)
[2021-07-06] MEDS: Aspirin E.C. 81 MG Tablet PO ×2 (07:35→20:04)
[2021-07-06] MEDS: Timolol 0.5% 5ML OPTH.BTL 1 DRP EACH EYE ×2 (07:36→20:04)
[2021-07-06] MEDS: CANAGLIFLOZIN 300 MG TABLET PO (07:36)
[2021-07-06] MEDS: Latanoprost 0.005% 1 Bottle 1 DRP EACH EYE (07:36)
[2021-07-06] MEDS: metFORMIN HCl 1,000 MG Tablet 1000 MG PO (07:37)
[2021-07-06] MEDS: Insulin Human 75/25 Kwickpen 90 UNIT SC (07:41)
[2021-07-06 08:00] VITALS: BP 145/70; PULSE 67; RESP 16; TEMP 36.5; O2SAT 96
[2021-07-06] MEDS: Insulin Lispro 100 UNIT/ML INSULN.PEN SC (11:51)
[2021-07-06 12:01] LABS: Bedside Glucose 169 mg/dL (70-110)
[2021-07-06] MEDS: Insulin Human 75/25 Kwickpen 64 UNIT SC (17:16)
[2021-07-06 17:25] LABS: Bedside Glucose 131 mg/dL (70-110)
[2021-07-06 19:40] VITALS: BP 130/82; PULSE 70; RESP 17; TEMP 36.1; O2SAT 96
[2021-07-06] MEDS: Senna/Docusate Sodium 1 Tablet 2 TABLET PO (20:03)
[2021-07-06] MEDS: Atorvastatin Calcium 40 MG Tablet PO (20:03)
[2021-07-06 21:41] LABS: Bedside Glucose 145 mg/dL (70-110)
[2021-07-07 07:06] LABS: Bedside Glucose 153 mg/dL (70-110)
[2021-07-07] MEDS: Acetaminophen 500 MG Tablet 1000 MG PO ×3 (07:54→23:58)
[2021-07-07] MEDS: oxyCODONE 5 MG Tablet PO ×3 (07:54→23:58)
[2021-07-07] MEDS: Latanoprost 0.005% 1 Bottle 1 DRP EACH EYE (07:55)
[2021-07-07] MEDS: CANAGLIFLOZIN 300 MG TABLET PO (07:55)
[2021-07-07] MEDS: Timolol 0.5% 5ML OPTH.BTL 1 DRP EACH EYE ×2 (07:56→20:29)
[2021-07-07] MEDS: Aspirin E.C. 81 MG Tablet PO ×2 (07:56→20:29)
[2021-07-07] MEDS: Cholecalciferol (VIT D3) 25 MCG TABLET (1,000 UNITS) 50 MCG PO (07:57)
[2021-07-07] MEDS: Lisinopril 10 MG Tablet PO (07:57)
[2021-07-07] MEDS: Pantoprazole Sodium 20 MG Tablet PO (07:59)
[2021-07-07] MEDS: metFORMIN HCl 1,000 MG Tablet 1000 MG PO (07:59)
[2021-07-07] MEDS: Senna/Docusate Sodium 1 Tablet 2 TABLET PO ×2 (08:00→20:29)
[2021-07-07] MEDS: Insulin Lispro 100 UNIT/ML INSULN.PEN SC ×3 (08:01→17:12)
[2021-07-07] MEDS: Insulin Human 75/25 Kwickpen 90 UNIT SC (08:02)
[2021-07-07 10:00] VITALS: BP 140/78; PULSE 75; RESP 16; TEMP 36.1; O2SAT 95
[2021-07-07 11:56] LABS: Bedside Glucose 158 mg/dL (70-110)
[2021-07-07] MEDS: Insulin Human 75/25 Kwickpen 64 UNIT SC (17:13)
[2021-07-07 17:25] LABS: Bedside Glucose 157 mg/dL (70-110)
[2021-07-07 20:29] VITALS: BP 139/59; PULSE 70; RESP 17; TEMP 36.8; O2SAT 96
[2021-07-07] MEDS: Atorvastatin Calcium 40 MG Tablet PO (20:29)
[2021-07-07 20:30] VITALS: O2SAT 96
[2021-07-07 21:25] LABS: Bedside Glucose 162 mg/dL (70-110)
[2021-07-08 06:51] LABS: Bedside Glucose 126 mg/dL (70-110)
[2021-07-08] MEDS: oxyCODONE 5 MG Tablet PO ×3 (07:40→23:25)
[2021-07-08] MEDS: Acetaminophen 500 MG Tablet 1000 MG PO ×3 (07:41→23:26)
[2021-07-08] MEDS: Timolol 0.5% 5ML OPTH.BTL 1 DRP EACH EYE ×2 (07:42→20:43)
[2021-07-08] MEDS: Pantoprazole Sodium 20 MG Tablet PO (07:42)
[2021-07-08] MEDS: CANAGLIFLOZIN 300 MG TABLET PO (07:42)
[2021-07-08] MEDS: Latanoprost 0.005% 1 Bottle 1 DRP EACH EYE (07:44)
[2021-07-08] MEDS: Lisinopril 10 MG Tablet PO (07:45)
[2021-07-08] MEDS: Cholecalciferol (VIT D3) 25 MCG TABLET (1,000 UNITS) 50 MCG PO (07:45)
[2021-07-08] MEDS: metFORMIN HCl 1,000 MG Tablet 1000 MG PO (07:45)
[2021-07-08] MEDS: Senna/Docusate Sodium 1 Tablet 2 TABLET PO ×2 (07:46→20:43)
[2021-07-08] MEDS: Insulin Human 75/25 Kwickpen 90 UNIT SC (07:48)
[2021-07-08] MEDS: Aspirin E.C. 81 MG Tablet PO ×2 (07:53→20:43)
[2021-07-08 08:01] VITALS: BP 127/74; PULSE 83; RESP 16; TEMP 37.1; O2SAT 95
--- NOTE | 2021-07-08 10:27 | PCM.PN.BLA ---
Progress Note Juan Jose was seen on team rounds today. His Latisha participated by phone. Afebrile VSS Maintaining appropriate oxygen saturation on RA Oral intake is good Blood sugar record was reviewed. Blood sugars are under excellent control with no hypoglycemia. Discussed with nursing - no problems that need addressed Reviewed the PT/OT notes Medication list reviewed. Denies chest pain, shortness of breath, lightheadedness, nausea/vomiting, constipation, diarrhea, dysuria, insomnia. Pain is well controlled. Usually taking 5 mg of oxycodone 3 times a day for pain control. Physical Exam Const alert, oriented x3 and no apparent distress General Appearance: cooperative and comfortable HEENT moist oral mucous membranes Resp normal respiratory effort and clear to auscultation bilaterally Resp Narrative: No conversational dyspnea. Cardio regular rate, regular rhythm and no gallops GI normal to inspection, nondistended, normoactive bowel sounds, soft to palpation and non-tender Extremity no calf tenderness and no pedal edema Extremity Narrative: The toes on the right foot are warm and not swollen. Skin General Skin Exam: no breakdown Rashes: no rashes Neuro oriented x3 and CN's II-XII intact bilaterally Psych affect normal Assessment & Plan Assessment/Plan (1) Status post open reduction and internal fixation (ORIF) of fracture: PLAN: 1. Change the Accu-Cheks to twice daily and discontinue sliding scale insulin. 2. Start ferrous sulfate plus vitamin C at lunchtime 3. Recheck CBC and BMP in the a.m. 4. Continue therapy 5. Discharge planned for Thursday and patient must leave the hospital by 10 AM to attend his follow-up appointment with Dr. Rousseau Visit Charges Inpatient E&M: 90650 Subs Hosp L2
[2021-07-08 11:05] LABS: Bedside Glucose 190 mg/dL (70-110)
[2021-07-08] MEDS: Insulin Lispro 100 UNIT/ML INSULN.PEN SC (12:18)
--- NOTE | 2021-07-08 13:51 | CASEMGMT ---
Social Work IDT met with patient and and via conference call for Team meeting. Discussed patient's progress in PT/OT and nursing. Pt progressing well and safe to DC home with 07/10. Pt requested [facility] PT/OT. Provided skilled HHC list with quality and resource data. Pt agreeable to referral to [facility]. Referral made. has purchased all DME need. to transport. Plan: DC home with 07/10, [facility] PT/OT JOHN SoaresW
[2021-07-08] MEDS: Ascorbic Acid 500 MG Tablet 1000 MG PO (14:37)
[2021-07-08] MEDS: Ferrous Sulfate 325 MG Tablet PO (14:37)
[2021-07-08 16:10] LABS: Bedside Glucose 167 mg/dL (70-110)
[2021-07-08] MEDS: Insulin Human 75/25 Kwickpen 64 UNIT SC (17:13)
--- NOTE | 2021-07-08 19:21 | DCINST_ITS ---
Discharge Instructions Diet Discharge Diet: Low fat / Low cholesterol, 2000 Calorie Control Diet, 4000 mg Sodium Diet and Carb Control Diet Activity Discharge Activity: May Not Drive, Use Walker and - (Use wheel chair or knee scooter to get around. Do not get the dressing wet. ) Weight Bearing Status: No weight bearing (On the R leg) Keep extremity elevated above heart level: Right Leg Dressing / Incision Call your doctor if your incision/area has: Sudden Increased Bleeding, Increased Pain/ Swelling, Increased Redness and Foul Smelling Discharge Call your doctor if you observe: Fever of 101 or Higher, Coldness, Increased Pain, Inability to urinate, Inability to have a bowel movement, Swelling in the ankles, Chest pain, Increased palpitations (irregular heartbeat) and Calf discomfort Remove Dressing in: 1 day (Dr. Wilks will remove at Juan Jose's appt tomorrow.) Follow Up Care Please Follow Up With: Robert Lo MD Test Results: Test results from this visit will be discussed in further detail at your follow-up appointment, if applicable. 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 I am concerned that the white blood cell count is increased from what it was at admission to rehab. You have not had a fever BUT, that being said you have been taking 1 gram of Tylenol 3 times a day for pain control and this will suppress a fever. The increase may just be due to inflammation. I am encouraged by the fact that there is no swelling in the toes and no redness. There is no discharge present on the dressing. I would love to look at the incision but, since you are seeing Dr. Wilks tomorrow I will defer to him. I stopped the Tylenol to see if a fever would develop. You had a infected diabetic ulcer on the R foot prior to surgery and I know you were treated with antibiotics. Sometimes if there is any residual bacteria left behind the bone can become infected. This normally causes pain but, since you have bad neuropathy you can not feel pain in the foot. This wound has not healed in the past and EVERYTHING must be done right so that you do not end up with an amputation. You were Vitamin D deficient and this decreases calcium absorption from the GI tract. Vitamin D comes from the sun and we do not see the sun in [place] very often, [place] in the winter months. Calcium is important in healing bone. 2. Your blood sugar control is excellent. Keep that HGBA1C under 7 to help prevent the complications that accompany diabetes like strokes, heart attacks, vascular disease, kidney disease, eye disease, etc. Other goals are to keep the LDL (bad cholesterol) < 70 and the BP , 130/80. You should always know your last HGBA1C and your LDL. You have a small amount of protein in your urine. The normal protein/creat ratio is <200 and yours is 336. If you keep the above goals in mind and things under control I doubt you will have any significant problems with the kidneys. 3. I am sending a copy of your DC summary to Dr. Wilks, Dr. Aleman and Dr. Lo for their records. 3. It was good to meet you Juan Jose. I hope everything works out for you. If you ever need our services again we will be happy to have you or any of your family back. If you have questions for me after you leave rehab do not hesitate to call. Office: [phone] CEll: [phone] Discharge Orders/Prescriptions Prescriptions: New ascorbic acid (vitamin C) 500 mg Tablet 1,000 mg PO 1200 Qty: 0 RF: 0 cholecalciferol (vitamin D3) 25 mcg (1,000 unit) Tablet 50 mcg PO DAILY Qty: 60 RF: 0 ferrous sulfate [FeroSul] 325 mg (65 mg iron) Tablet 325 mg PO DAILY@1200 Qty: 30 RF: 0 oxycodone 5 mg Tablet 5 mg PO Q4H PRN PRN (Reason: Pain Score 6-10) 7 Days Qty: 42 RF: 0 sennosides-docusate sodium [Stool Softener-Stimulant Laxat] 8.6-50 mg Tablet 2 tab PO BID Qty: 120 RF: 0 Continued atorvastatin 40 mg tablet 40 mg PO DAILY RF: 0 Invokana 300 mg tablet 300 mg PO DAILY RF: 0 lisinopril 10 mg tablet 10 mg PO DAILY RF: 0 metformin 1,000 mg tablet 1,000 mg PO DAILY RF: 0 Novolin 70/30 U-100 Insulin 100 unit/mL (70-30) suspension 120 unit SC BID RF: 0 omeprazole 20 mg capsule,delayed release(DR/EC) 20 mg PO DAILY RF: 0 Trulicity 1.5 mg/0.5 mL pen injector 1.5 mg SC QWEEK RF: 0 aspirin 81 mg Tablet,Delayed Release (Dr/Ec) 81 mg PO DAILY MDD heart RF: 0 acetaminophen 500 mg Capsule 500 mg PO Q6H PRN (Reason: Pain) RF: 0 latanoprost 0.005 % Drops 1 drp EACH EYE QPM RF: 0 timolol 0.5 % Drops 1 drp EACH EYE DAILY RF: 0 Discontinued Avano 6 ml Q1H RF: 0 Referrals / Follow Up: Robert Lo MD [Primary Care Provider] - 07/11/21 2:00 pm () Fabien Wilks MD [NON-STAFF] - 07/10/21 11:00 am ([facility], [address] [place] [address], [address], [facility] [phone]) Disposition Disposition (needs filled in before D/C Order can be placed): Home Health Service
[2021-07-08 20:19] VITALS: BP 142/64; PULSE 80; RESP 18; TEMP 36.9; O2SAT 95
[2021-07-08] MEDS: Atorvastatin Calcium 40 MG Tablet PO (20:43)
[2021-07-09 05:51] LABS: Anion Gap 5 (5-15); BUN 22 mg/dL (7-18); BUN/Creat Ratio 23.3 RATIO (10-20); Calcium,Total 9.7 mg/dL (8.5-10.1); Chloride 101 mmol/L (98-107); Creatinine, Serum 0.94 mg/dL (0.70-1.30); EST Glomerular Filtration Rate 84 mL/min (>60); Est Glom Filt Rate - Afr Amer 101 mL/min (>60); Estimated Creatinine Clearance 79.11 ml/min; Glucose 81 mg/dL (74-106); Potassium 4.7 mmol/L (3.5-5.1); Sodium Level 136 mmol/L (136-145)
[2021-07-09 06:06] LABS: Bedside Glucose 113 mg/dL (70-110)
[2021-07-09 06:20] LABS: Hematocrit 36.3 % (40-54); Hemoglobin 11.6 g/dL (13.0-16.5); Mean Corpuscular Hgb 29.5 pg (27.0-32.0); Mean Corpuscular Volume 92.4 fL (80-94); Mean Platelet Vol. 9.4 fl (6.2-12.0); Platelet Count 370 K/mm3 (150-450); RBC Distribution Width CV 14.4 % (11.6-14.6); RBC Distribution Width SD 49.1 fl (35.1-43.9); Red Blood Count 3.93 M/mm3 (4.6-6.2); White Blood Count 14.3 K/mm3 (4.4-11.0)
[2021-07-09 07:30] VITALS: BP 134/65; PULSE 78; RESP 15; TEMP 36.9; O2SAT 98
[2021-07-09] MEDS: oxyCODONE 5 MG Tablet PO ×2 (07:34→19:40)
[2021-07-09] MEDS: Acetaminophen 500 MG Tablet 1000 MG PO (07:34)
[2021-07-09] MEDS: metFORMIN HCl 1,000 MG Tablet 1000 MG PO (07:58)
[2021-07-09] MEDS: Timolol 0.5% 5ML OPTH.BTL 1 DRP EACH EYE ×2 (07:59→19:42)
[2021-07-09] MEDS: Lisinopril 10 MG Tablet PO (07:59)
[2021-07-09] MEDS: Cholecalciferol (VIT D3) 25 MCG TABLET (1,000 UNITS) 50 MCG PO (07:59)
[2021-07-09] MEDS: Senna/Docusate Sodium 1 Tablet 2 TABLET PO ×2 (07:59→19:41)
[2021-07-09] MEDS: Aspirin E.C. 81 MG Tablet PO ×2 (07:59→19:40)
[2021-07-09] MEDS: Pantoprazole Sodium 20 MG Tablet PO (07:59)
[2021-07-09] MEDS: CANAGLIFLOZIN 300 MG TABLET PO (07:59)
[2021-07-09] MEDS: Latanoprost 0.005% 1 Bottle 1 DRP EACH EYE (07:59)
[2021-07-09] MEDS: Insulin Human 75/25 Kwickpen 90 UNIT SC (08:00)
--- NOTE | 2021-07-09 10:34 | PCM.PN.BLA ---
Progress Note AF VSS All blood sugars are less than 200 and no hypoglycemia All lab was personally reviewed. HGB is up to 11.6 from 10.4 on 06/28. WBC is elevated at 14.3, up from 11.6 at admission. ESR and CRP are pending. BMP is stable and unremarkable. We have not taken the dressing down since admission to rehab per orthopedic orders. Denies shaking chills. Denies calf pain. No swelling in the toes of the R foot and no erythema extending beyond the dressing. No cough, CP, SOB. Sleeping well. Physical Exam Const alert, oriented x3 and no apparent distress General Appearance: cooperative HEENT moist oral mucous membranes Resp clear to auscultation bilaterally Cardio regular rate and regular rhythm GI normal to inspection, nondistended, normoactive bowel sounds, soft to palpation and non-tender Extremity no calf tenderness and no pedal edema Skin General Skin Exam: no breakdown Rashes: no rashes Psych cooperative and affect normal Assessment & Plan Assessment/Plan (1) Physical debility: PLAN: Will DC tomorrow and he will go straight to appt with Dr. Wilks (2) Status post open reduction and internal fixation (ORIF) of fracture: PLAN: Since he has an appt with Dr. Wilks in the AM I will not take the dressing down today but, defer to Dr. Wilks. (3) Leukocytosis: PLAN: This concerns me. The elevation in the WBC count could be due to inflammation, chronic infection (he had an infected diabetic ulcer prior to the recent surgery), osteomyelitis, etc. He is on Acetaminophen 1 GM q8H and this would likely suppress a fever. ESR is 20 and the CRP is elevated at 29.8. There is a mild left shift with 75% neutrophils. With no fever and only a mild L shift and no swelling in the foot I am not going to start an antibiotic but, I not exclude infection at this time. Defer antibiotics to Dr. Wilks's discretion when he takes the dressing down tomorrow and examines the wound. (4) Normochromic normocytic anemia: PLAN: HGB is now increasing since iron has been replaced. He will continue Vitamin C and iron supplements at [place] and recommend checking another iron panel in 6-8 weeks. (5) Type 2 diabetes mellitus: PLAN: Well controlled (6) HTN (hypertension): PLAN: controlled Visit Charges Inpatient E&M: 10668 Subs Hosp L2
[2021-07-09 11:01] LABS: Absolute Lymphocyte Count 2.03 X10^3/uL (0.83-4.51); Absolute Neutrophil Count 10.9 X10^3/uL (2.0-7.7); Basophil# 0.05 X10^3/uL; Basophil% 0.3 % (0-1); Eosinophils% 0.7 % (0-5); Lymphocyte # 2.03 X10^3/ul (0.83-4.51); Monocyte# 1.33 X10^3/uL; Monocyte% 9.2 % (0-10); NRBC Flagged by Analyzer 0 % (0-5); Neutrophil % 75.1 % (47-70)
[2021-07-09 11:08] LABS: Erythrocyte Sedimentation Rate 29 mm/hr (0-20)
[2021-07-09] MEDS: Ascorbic Acid 500 MG Tablet 1000 MG PO (12:02)
[2021-07-09] MEDS: Ferrous Sulfate 325 MG Tablet PO (12:02)
--- NOTE | 2021-07-09 12:28 | PCM.DC.SUM ---
Providers Date of Admission: 06/27/21 Date of Discharge: 07/10/21 Primary Care Physician: Dr. Robert Lo MD Reason For Visit: R ANKLE ARTHEODESIS Diagnosis Discharge Diagnosis (1) Physical debility: Status: Acute Code(s): R53.81 - Other malaise (2) Status post open reduction and internal fixation (ORIF) of fracture: Status: Acute Code(s): Z98.890 - Other specified postprocedural states; Z87.81 - Personal history of (healed) traumatic fracture (3) Iron deficiency: Status: Acute Code(s): E61.1 - Iron deficiency (4) Vitamin D deficiency: Status: Acute Code(s): E55.9 - Vitamin D deficiency, unspecified (5) Leukocytosis: Status: Acute Code(s): D72.829 - Elevated white blood cell count, unspecified (6) Normochromic normocytic anemia: Status: Acute Code(s): D64.9 - Anemia, unspecified (7) Type 2 diabetes mellitus: Status: Chronic Code(s): E11.9 - Type 2 diabetes mellitus without complications (8) HTN (hypertension): Status: Chronic Code(s): I10 - Essential (primary) hypertension (9) Glaucoma: Status: Acute Code(s): H40.9 - Unspecified glaucoma (10) NIKI (obstructive sleep apnea): Status: Chronic Code(s): G47.33 - Obstructive sleep apnea (adult) (pediatric) (11) Obesity due to excess calories with serious comorbidity: Status: Chronic Code(s): E66.09 - Other obesity due to excess calories Qualifiers: Body mass index: BMI 36.0-36.9 Obesity classification: adult class 2 (BMI 35 - 39.9) Qualified Code(s): E66.01 - Morbid (severe) obesity due to excess calories; Z68.36 - Body mass index (BMI) 36.0-36.9, adult (12) PVD (peripheral vascular disease): Status: Chronic Code(s): I73.9 - Peripheral vascular disease, unspecified (13) Enlarged prostate: Status: Chronic Code(s): N40.0 - Benign prostatic hyperplasia without lower urinary tract symptoms (14) Cardiac arrhythmia: Status: Chronic Code(s): I49.9 - Cardiac arrhythmia, unspecified (15) Acid reflux: Status: Chronic Code(s): K21.9 - Gastro-esophageal reflux disease without esophagitis (16) Hyperlipidemia: Status: Chronic Code(s): E78.5 - Hyperlipidemia, unspecified Medications at Discharge Home Medications atorvastatin 40 mg tablet 40 mg PO DAILY 08/29/19 canagliflozin 300 mg tablet 300 mg PO DAILY 08/29/19 dulaglutide 1.5 mg/0.5 mL subcutaneous pen injector 1.5 mg SC QWEEK 08/29/19 insulin human U-100 NPH-regulr 70-30 mix 100 unit/mL subcutaneous susp 120 unit SC BID 08/29/19 lisinopril 10 mg tablet 10 mg PO DAILY 08/29/19 metformin 1,000 mg tablet 1,000 mg PO DAILY 08/29/19 omeprazole 20 mg capsule,delayed release 20 mg PO DAILY 08/29/19 acetaminophen 500 mg PO Q6H PRN 06/27/21 aspirin 81 mg PO DAILY MDD heart 06/27/21 latanoprost 1 drp EACH EYE QPM 06/27/21 timolol 1 drp EACH EYE DAILY 06/27/21 ascorbic acid (vitamin C) 1,000 mg PO 1200 #0 tab 07/08/21 cholecalciferol (vitamin D3) 50 mcg PO DAILY #60 tab 07/08/21 ferrous sulfate [FeroSul] 325 mg PO DAILY@1200 #30 tab 07/08/21 oxycodone 5 mg PO Q4H PRN PRN 7 Days #42 tab 07/08/21 sennosides-docusate sodium [Stool Softener-Stimulant Laxat] 2 tab PO BID #120 tab 07/08/21 Hospital Course Operations - (R ankle arthrodesis 06/25/[address] Wilks ) Procedures None Summary of Care Provided Minutes Spent on Discharge: 45 Hospital Course: CORINA ELLIS, is a 70 YO M with a PMH of DM II, diabetic neuropathy in both feet and neuropathy in the fingertips of both hands, Obesity, GERD, NIKI on BIPAP at with 100% compliance at his last visit with Dr. Celis, HTN, presbycusis, HLD, tobacco dependence in remission, Psoriasis, OA and glaucoma who had an open anterior ankle fusion on the R ankle by Dr. Wilks in June of 2020. In January of 2021 he noticed his ankle was rolling over on the lateral side. When he saw Dr. 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 This became infected and he was treated with antibiotics with resolution of infection prior to the recent revision of the R ankle fusion and placement of a hindfoot fusion nail on 06/25/21. He was told by Dr. Wilks prior to the recent surgery that if this fails he is likely looking at amputation. Post-operatively he was seen by PT/OT and acute rehab was recommended. He was transferred to the acute inpt rehab unit at [facility] on 06/27/21 for 3 hours of therapy daily to train him to maneuver a knee walker and WC safely. He will be NWB on the RLE for at least 6 weeks and possibly longer. Juan Jose was anemic at presentation to rehab. Iron studies showed the iron to be low at 26 and the iron saturation to be very low at 8.5%. Ferritin is 77 which is WNL however ferritin is an acute phase reactant and is likely falsely elevated due to recent surgery/inflammation. He had been taking iron 65 mg daily at home along with a vitamin C supplement. He takes a PPI for reflux and he may not be able to absorb the iron even with the addition of the vitamin C. He was given 600 mg of IV iron sucrose and started on ferrous sulfate 325 mg plus Ascorbic acid 1,000 mg with food once daily. The HGB increased from 10.4 to 11.6 while he was in rehab. He was also found to be deficient in Vitamin D. The level was 15.5 and it should be > 30 to be considered sufficient. He was started on a Vitamin D supplement. The calcium is not low and he is on no supplementation. In fact on the day of DC the calcium corrected for hypoalbuminemia is mildly elevated at 10.5? This may need to be investigated as an OP. A CBC was obtained 1 day prior to DC and the WBC count went from 11.6-14.3 prior to DC. He had 75% neutrophils. ESR was 20 and the CRP was elevated at 29.8. This may be due to inflammation related to the surgery but, it concerns me. We were instructed not to remove the dressing prior to his appt with Dr. Wilks on 07/10/21. The R toes were not swollen and there was no erythema outside the limits of the bandage. With the infection of the diabetic ulcer prior to the surgery and the failure of the prior arthrodesis I am concerned about possible osteomyelitis. He had no fevers while at rehab but, he has been getting Tylenol 1,000 mg Q8 hours the entire tome for pain control. Juan Jose did very well in therapy. He remained strictly NWB on the R leg and prior to DC he was able to travel to feet with a knee walker at standby assist. He was able to do was able to do the tug test (stand up, walk 10 ft, turn around and walk back and sit down) in 19.83 seconds with the right knee scooter at standby assist. He was able to do 7 sit to stands in 30 seconds at standby assist with push-up from the chair with his arms and Left leg only. He was able to propel the wheelchair 320 feet at a supervision level with improved activity tolerance. He requires min assist with bathing and is independent or Stand by assist with all ADL's. Juan Jose was discharged on 07/10/21 and following his appt with Dr. Wilks will go home with [facility] for PT/OT. Physical Exam Const alert, oriented x3, no apparent distress and well nourished Constitutional Narrative: Sitting n the WC in the therapy room. Denies pain and appears comfortable. General Appearance: cooperative, comfortable and well kempt HEENT moist oral mucous membranes Eyes conjunctivae normal and no scleral icterus Neck Neck Narrative: Thick neck. No carotid bruits. Carotids have brisk upstroke and goo pulse volume. Chest Chest: symmetrical chest wall rise Resp normal respiratory effort and clear to auscultation bilaterally Resp Narrative: No conversational dyspnea. Mildly diminished (may be due to body habitus). Effort and Inspection: able to speak in complete sentences Cardio regular rate, regular rhythm, S1 normal heart sound, S2 normal heart sound, no murmurs, no rub and no gallops Cardio Narrative: No ectopy GI normal to inspection, nondistended, normoactive bowel sounds, soft to palpation and non-tender external exam normal Narrative: He has been circumcised. Extremity no calf tenderness and no pedal edema Extremity Narrative: The toes on the right foot are warm and not swollen. There is no erythema outside of the bandage. General Extremity: Negative for edema Skin General Skin Exam: no breakdown Rashes: no rashes Wound Narrative: The same dressing is in place and we are not to change the dressing. He has an appt to see Dr. Wilks on 07/10/21 Neuro oriented x3, CN's II-XII intact bilaterally, moves all extremities and no focal motor deficits Neuro Narrative: severe neuropathy in both feet and also has neuropathy in the tips of the fingers BL......thumb is spared BL. Psych mental status grossly normal, thought process normal, cooperative, affect normal and speech normal Appearance: grossly normal and appropriate Activity / Motor Behavior: appropriate eye contact Mood & Affect: euthymic mood Weight / BMI Weight Weight: 265 lb 9.6 oz Body Mass Index (BMI) 36.1 ABG / Lab / Microbiology Data Result Diagrams: 07/09/21 05:08 07/09/21 05:08 Laboratory: Laboratory Results - last 24 hr 07/08/21 16:08: POC Glucose 167 H 07/09/21 05:08: WBC 14.3 H, RBC 3.93 L, Hgb 11.6 L, Hct 36.3 L, MCV 92.4, MCH 29.5, MCHC 32.0, RDW Std Deviation 49.1 H, RDW Coeff of Luis Alberto 14.4, Plt Count 370, MPV 9.4, Immature Gran % (Auto) 0.700, Neut % (Auto) 75.1 H, Lymph % (Auto) 14.0 L, Ramsey % (Auto) 9.2, Eos % (Auto) 0.7, Baso % (Auto) 0.3, Absolute Neuts (auto) 10.9 H, Absolute Lymphs (auto) 2.03, Nucleated RBC % 0 07/09/21 05:08: Sodium 136, Potassium 4.7, Chloride 101, Carbon Dioxide 30.0, Anion Gap 5, BUN 22 H, Creatinine 0.94, Estim Creat Clear Calc 79.11, Est GFR (MDRD) Af Amer 101, Est GFR (MDRD) Non-Af 84, BUN/Creatinine Ratio 23.3 H, Glucose 81, Calcium 9.7 07/09/21 05:08: ESR 29 H 07/09/21 05:08: C-React Prot Ext Range 29.80 H 07/09/21 05:56: POC Glucose 113 H Microbiology: Microbiology 06/28/21 18:55 Stool Stool Occult Blood ([facility]) - Final D/C Instructions Discharge Diet: Low fat / Low cholesterol, 2000 Calorie Control Diet, 4000 mg Sodium Diet and Carb Control Diet Weight Bearing Status: No weight bearing (On the R leg) Keep extremity elevated above heart level: Right Leg Call your doctor if your incision/area has: Sudden Increased Bleeding, Increased Pain/ Swelling, Increased Redness and Foul Smelling Discharge Call your doctor if you observe: Fever of 101 or Higher, Coldness, Increased Pain, Inability to urinate, Inability to have a bowel movement, Swelling in the ankles, Chest pain, Increased palpitations (irregular heartbeat) and Calf discomfort Please Follow Up With: Robert Lo MD Meaningful Use Info Meaningful Use Diagnoses (Choose all that apply): None applicable Discharge Plan Admission Admit Date/Time: 06/27/21 19:20 Primary Reason for Your Visit: Debility due to failed R ankle fusion necessitating a second surgery Attending Provider: Ana Bose Primary Care Provider: Robert Lo Consulting Providers: Fabien Wilks Instructions Additional Instructions / Restrictions: 1. I am concerned that the white blood cell count is increased from what it was at admission to rehab. You have not had a fever BUT, that being said you have been taking 1 gram of Tylenol 3 times a day for pain control and this will suppress a fever. The increase may just be due to inflammation. I am encouraged by the fact that there is no swelling in the toes and no redness. There is no discharge present on the dressing. I would love to look at the incision but, since you are seeing Dr. Wilks tomorrow I will defer to him. I stopped the Tylenol to see if a fever would develop. You had a infected diabetic ulcer on the R foot prior to surgery and I know you were treated with antibiotics. Sometimes if there is any residual bacteria left behind the bone can become infected. This normally causes pain but, since you have bad neuropathy you can not feel pain in the foot. This wound has not healed in the past and EVERYTHING must be done right so that you do not end up with an amputation. You were Vitamin D deficient and this decreases calcium absorption from the GI tract. Vitamin D comes from the sun and we do not see the sun in [place] very often, [place] in the winter months. Calcium is important in healing bone. 2. Your blood sugar control is excellent. Keep that HGBA1C under 7 to help prevent the complications that accompany diabetes like strokes, heart attacks, vascular disease, kidney disease, eye disease, etc. Other goals are to keep the LDL (bad cholesterol) < 70 and the BP , 130/80. You should always know your last HGBA1C and your LDL. You have a small amount of protein in your urine. The normal protein/creat ratio is <200 and yours is 336. If you keep the above goals in mind and things under control I doubt you will have any significant problems with the kidneys. 3. I am sending a copy of your DC summary to Dr. Wilks, Dr. Aleman and Dr. Lo for their records. 3. It was good to meet you Juan Jose. I hope everything works out for you. If you ever need our services again we will be happy to have you or any of your family back. If you have questions for me after you leave rehab do not hesitate to call. Office: [phone] CEll: [phone] Discharge Orders/Prescriptions Prescriptions: New ascorbic acid (vitamin C) 500 mg Tablet 1,000 mg PO 1200 Qty: 0 RF: 0 cholecalciferol (vitamin D3) 25 mcg (1,000 unit) Tablet 50 mcg PO DAILY Qty: 60 RF: 0 ferrous sulfate [FeroSul] 325 mg (65 mg iron) Tablet 325 mg PO DAILY@1200 Qty: 30 RF: 0 oxycodone 5 mg Tablet 5 mg PO Q4H PRN PRN (Reason: Pain Score 6-10) 7 Days Qty: 42 RF: 0 sennosides-docusate sodium [Stool Softener-Stimulant Laxat] 8.6-50 mg Tablet 2 tab PO BID Qty: 120 RF: 0 Continued atorvastatin 40 mg tablet 40 mg PO DAILY RF: 0 Invokana 300 mg tablet 300 mg PO DAILY RF: 0 lisinopril 10 mg tablet 10 mg PO DAILY RF: 0 metformin 1,000 mg tablet 1,000 mg PO DAILY RF: 0 Novolin 70/30 U-100 Insulin 100 unit/mL (70-30) suspension 120 unit SC BID RF: 0 omeprazole 20 mg capsule,delayed release(DR/EC) 20 mg PO DAILY RF: 0 Trulicity 1.5 mg/0.5 mL pen injector 1.5 mg SC QWEEK RF: 0 aspirin 81 mg Tablet,Delayed Release (Dr/Ec) 81 mg PO DAILY MDD heart RF: 0 acetaminophen 500 mg Capsule 500 mg PO Q6H PRN (Reason: Pain) RF: 0 latanoprost 0.005 % Drops 1 drp EACH EYE QPM RF: 0 timolol 0.5 % Drops 1 drp EACH EYE DAILY RF: 0 Discontinued Avano 6 ml Q1H RF: 0 Referrals / Follow Up: Robert Lo MD [Primary Care Provider] - 07/11/21 2:00 pm () Fabien Wilks MD [NON-STAFF] - 07/10/21 11:00 am ([facility], [address] [place] [address], [address], pending sale to [facility] [phone]) Disposition Disposition (needs filled in before D/C Order can be placed): Home Health Service Charges/Coding Visit Charges Inpatient E&M: 80596 Disch Hosp
[2021-07-09 17:01] LABS: Bedside Glucose 81 mg/dL (70-110)
[2021-07-09] MEDS: Insulin Human 75/25 Kwickpen 64 UNIT SC (17:41)
[2021-07-09] MEDS: Atorvastatin Calcium 40 MG Tablet PO (19:41)
[2021-07-09 19:50] VITALS: TEMP 38.3
[2021-07-09 19:51] VITALS: TEMP 37.7
[2021-07-09 22:00] VITALS: BP 159/71; PULSE 99; RESP 18; TEMP 37.3; O2SAT 96
[2021-07-10 07:20] LABS: Bedside Glucose 89 mg/dL (70-110)
[2021-07-10] MEDS: oxyCODONE 5 MG Tablet PO (07:30)
[2021-07-10 07:35] VITALS: BP 150/60; PULSE 96; RESP 18; TEMP 36.9; O2SAT 96
[2021-07-10] MEDS: Aspirin E.C. 81 MG Tablet PO (08:03)
[2021-07-10] MEDS: Pantoprazole Sodium 20 MG Tablet PO (08:03)
[2021-07-10] MEDS: metFORMIN HCl 1,000 MG Tablet 1000 MG PO (08:03)
[2021-07-10] MEDS: Cholecalciferol (VIT D3) 25 MCG TABLET (1,000 UNITS) 50 MCG PO (08:03)
[2021-07-10] MEDS: Lisinopril 10 MG Tablet PO (08:03)
[2021-07-10] MEDS: CANAGLIFLOZIN 300 MG TABLET PO (08:04)
[2021-07-10] MEDS: Insulin Human 75/25 Kwickpen 90 UNIT SC (08:04)
[2021-07-10] MEDS: Timolol 0.5% 5ML OPTH.BTL 1 DRP EACH EYE (08:06)
[2021-07-10] MEDS: Latanoprost 0.005% 1 Bottle 1 DRP EACH EYE (08:06)
[2021-07-10 10:07] VITALS: BP 150/60; PULSE 96; RESP 18; TEMP 36.9; O2SAT 96
--- NOTE | 2021-07-10 10:08 | NURSING ---
discharged home with . discharge instruction, medications and appointments reviewed with pt and . denies questions or concerns
== END 2021-07-10 10:09 | disposition home health service (06) | DRG 561 ==
PROVIDERS: Admitting Provider Internal Medicine; PCP Family Medicine; Visit Provider Internal Medicine
DX: Z47.89 Encounter for other orthopedic aftercare (principal); E11.40 Type 2 diabetes mellitus with diabetic neuropathy, unspecified; G47.33 Obstructive sleep apnea (adult) (pediatric); I10 Essential (primary) hypertension; K21.9 Gastro-esophageal reflux disease without esophagitis; E78.5 Hyperlipidemia, unspecified; L40.9 Psoriasis, unspecified; E11.51 Type 2 diabetes mellitus with diabetic peripheral angiopathy without gangrene; D64.9 Anemia, unspecified; E66.01 Morbid (severe) obesity due to excess calories; N40.0 Benign prostatic hyperplasia without lower urinary tract symptoms; Z68.36 Body mass index [BMI] 36.0-36.9, adult; Z87.891 Personal history of nicotine dependence; Z79.4 Long term (current) use of insulin; Z79.899 Other long term (current) drug therapy; Z79.82 Long term (current) use of aspirin
CPT/HCPCS: 36415; 80048; 80053; 80061; 82274; 82306; 82570; 82728; 82947; 82962; 83036; 83540; 83550; 83735; 84100; 84156; 85025; 85652; 86140; 97110; 97116; 97161; 97166; 97530; 97535; 97537; 97542; 97802; 99251; J7050; A4216; G0463; J2916